=== PATIENT | female | born 1980 | race Caucasian/White ===

== ENCOUNTER → 2016-09-12 | Outpatient (CLI) | payer OTHER ==
[2016-07-18 17:16] VITALS: BP 131/64
--- NOTE | 2016-09-12 14:51 | RAD ---
APPROVED REPORT Patient Location : OUT-PATIENT Indications Lower Extremity Edema : Bilateral RT SFJ 0 SECONDS/ 0.3 CM LT SFJ 0 SECONDS/ 0.4 CM RT LSV 0 SECONDS/ 0.2 CM LT LSV 0 SECONDS. 0.3 CM Critical Notification Critical Value: No <Conclusion> No evidence of reflux in the bilateral greater and lesser saphenous veins. Measurements as noted abov e. No evidence of thrombus on limited imaging.
--- NOTE | 2016-09-12 15:07 | RAD ---
APPROVED REPORT Bilateral Lower Extremity Venous Study for DVT Patient Location: OUT-PATIENT Indications Lower Extremity Edema: Bilateral On the right the common femoral vein, profunda femoral vein, superficial femoral vein and popliteal v eins do not show any evidence of thrombus on grayscale imaging and are fully compressible with normal spectral waveforms on Doppler imaging. The below-knee veins are not well visualized but shows sponta neous flow. Similarly on the left side the common femoral vein, profunda femoral and superficial femo ral veins do not reveal any evidence of thrombus. The popliteal veins are widely patent and there is no evidence of thrombus. Again the below-knee veins on the left side are not well visualized with spo ntaneous flows noted. Critical Notification Critical Value: No <Conclusion> No evidence of DVT in the bilateral lower extremity deep venous system.
== END | disposition home or self-care (01) ==
LOC: US 12:45
PROVIDERS: ATTEND Internal Medicine Cardiovascular Disease
DX: I83.93 Asymptomatic varicose veins of bilateral lower extremities (principal); R60.0 Localized edema
CPT/HCPCS: 93970

== ENCOUNTER → 2016-10-17 | Outpatient (CLI) | payer OTHER ==
[2016-07-18 17:16] VITALS: BP 131/64
--- NOTE | 2016-10-17 14:54 | RAD ---
Indication pain for one month. No history of injury. AP and lateral views of the lumbar spine were obtained as well as a coned view targeted to the lumbosacral junction. Coned view is significantly compromised secondary to motion. Vertebral height and alignment are well maintained. There is very minimal disc space narrowing at L5-S1. An acute finding is not seen. IUD is noted. IMPRESSION: Minimal disc space narrowing L5-S1 in otherwise unremarkable plain films of the lumbar spine
--- NOTE | 2016-10-17 14:59 | RAD ---
Indication back pain. AP and lateral views of the cervical spine were obtained as well as an odontoid view and a swimmer's view. Vertebral height alignment and disc spaces are normal. Significant degenerative changes are not seen. No acute finding is apparent. The prevertebral soft tissues appear normal. IMPRESSION: Normal plain film exam of the cervical spine
== END | disposition home or self-care (01) ==
LOC: DXRADRC 14:14
PROVIDERS: ATTEND Family Medicine
DX: M54.5 Low back pain (principal); M54.6 Pain in thoracic spine
CPT/HCPCS: 72040; 72100

== ENCOUNTER → 2016-10-26 | Outpatient (CLI) | payer OTHER ==
[2016-07-18 17:16] VITALS: BP 131/64
--- NOTE | 2016-10-26 15:44 | RAD ---
Exam performed: X-ray abdomen KUB. Clinical Indication: Left upper quadrant pain for one day Date of Service: 10/26/16 Comparison: KUB from 02/20/09 Findings: Supine radiograph of the abdomen and pelvis reveals no evidence of ileus or obstruction. Definite pathologic calcification or organomegaly is not identified. There is scattered stool throughout the colon. IUD seen in the pelvis The visualized osseous structures appear unremarkable. Impression: 1. No acute abnormality seen. 2. Scattered stool throughout the colon. Correlate clinically for constipation.
== END | disposition home or self-care (01) ==
LOC: DXRADRC 15:27
PROVIDERS: ATTEND General Practice
DX: K59.09 Other constipation (principal); K31.89 Other diseases of stomach and duodenum
CPT/HCPCS: 74000

== ENCOUNTER 2017-01-28 08:13 | Emergency (ER) | payer OTHER ==
[2017-01-28 08:23] VITALS: BP 119/77
--- NOTE | 2017-01-28 08:41 | PHYS DOC ---
Past History Past Medical History: No Pertinent History Past Surgical History: No Surgical History Smoking: Greater than 1 pack/day Alcohol Use: None Drug Use: None Adult General Chief Complaint Chief Complaint: BACK pain HPI HPI Patient is a 36 year old F who presents with back pain. She states that she has had multiple occurrences of back pain over the past several years. She feels that this incident started approximately 2 months ago with no specific injury. She describes the pain as constant dull pain in the right side of her back between her shoulder blades. She feels that this pain is worse with movement or palpation. She is currently taking Flexeril and Ultram ibuprofen and Tylenol for the pain and is under the care of her primary care doctor. She also states that she has had burning with urination over the past 2 weeks. She was treated with Macrobid for 10 days however she feels that her symptoms have not resolved. Review of Systems Review of Systems Constitutional: Denies fever or chills [] Eyes: Denies change in visual acuity, redness, or eye pain [] HENT: Denies nasal congestion or sore throat [] Respiratory: Denies cough or shortness of breath [] Cardiovascular: No additional information not addressed in HPI [] GI: Denies abdominal pain, nausea, vomiting, bloody stools or diarrhea [] : Negative except history of present illness Musculoskeletal: Negative except history of present illness Integument: Denies rash or skin lesions [] Neurologic: Denies headache, focal weakness or sensory changes [] Endocrine: Denies polyuria or polydipsia [] Family History Family History Noncontributory Current Medications Current Medications Reviewed Allergies Allergies Allergies Coded Allergies Type Severity Reaction Last Updated Verified amoxicillin Allergy Unknown 12/15/14 No Physical Exam Physical Exam Constitutional: Well developed, well nourished, no acute distress, non-toxic appearance. [] HENT: Normocephalic, atraumatic, bilateral external ears normal, oropharynx moist, no oral exudates, nose normal. [] Eyes: PERRLA, EOMI, conjunctiva normal, no discharge. [] Neck: Normal range of motion, no tenderness, supple, no stridor. [] Cardiovascular:Heart rate regular rhythm, no murmur [] Lungs & Thorax: Bilateral breath sounds clear to auscultation [] Abdomen: Bowel sounds normal, soft, no tenderness, no masses, no pulsatile masses. [] Skin: Warm, dry, no erythema, no rash. [] Back: On inspection no focal signs of injury. Mild tenderness to palpation on the right mid thoracic paraspinal muscles. Normal range of motion of shoulder and neck and back. No bony tenderness was noted Extremities: No tenderness, no cyanosis, no clubbing, ROM intact, no edema. [] Neurologic: Alert and oriented X 3, normal motor function, normal sensory function, no focal deficits noted. [] Psychologic: Affect normal, judgement normal, mood normal. [] Current Patient Data Vital Signs Vital Signs Date Time Temp Pulse Resp B/P (MAP) Pulse Ox O2 Delivery O2 Flow Rate FiO2 01/28/17 08:23 98.7 81 16 99 Room Air Lab Results Patient refused to give a urine sample Radiology/Procedures Radiology/Procedures No imaging was indicated Course & Med Decision Making Course & Med Decision Making Humphrye symptoms were most consistent with muscle injury and she is currently under the care of her PCP. She does have medications to treat her pain as well as muscle spasm. She also has access to physical therapy. No other emergency medical treatment is available at this time. Her care is best managed by her PCP with respect to chronic conditions. She was advised that if she would like to be treated for her urinary symptoms she would need to provide a urine sample. She declined to give a urine sample Dragon Disclaimer Dragon Disclaimer This chart was dictated in whole or in part using Voice Recognition software in a busy, high-work load, and often noisy Emergency Department environment. It may contain unintended and wholly unrecognized errors or omissions. Departure Departure: Impression: Primary Impression: Back pain Disposition: HOME, SELF-CARE Condition: STABLE Referrals: ASHLEIGH CHEN (PCP) Follow up as soon as possible for further management Patient Instructions: Back Exercises Additional Instructions: Humphrey was seen in the emergency room for back pain. No emergency medical condition was found on history and physical exam. Her pain is chronic and most consistent with muscle pain. She was advised to continue stretching and strengthening as well as using Flexeril she has been previously prescribed as needed for pain. She was advised to follow up with her primary care doctor as soon as possible for further evaluation and management Problem Qualifiers Primary Impression: Back pain Back pain location: thoracic back pain Chronicity: chronic Back pain laterality: right Qualified Codes: M54.6 - Pain in thoracic spine; G89.29 - Other chronic pain SCHUYLER LI MD Jan 28, 2017 08:41
== END 2017-01-28 08:52 | disposition home or self-care (01) ==
LOC: ER 08:13
DX: M54.89 Other dorsalgia (principal); F17.200 Nicotine dependence, unspecified, uncomplicated; Z88.1 Allergy status to other antibiotic agents
CPT/HCPCS: 99281

== ENCOUNTER 2017-09-03 21:44 | Emergency (ER) | payer SELFPAY ==
[~2017-09-03] VITALS: Ht 165.1 cm; Wt 88.5 kg
[2017-09-03 21:50] VITALS: BP 107/61
--- NOTE | 2017-09-03 21:57 | ED.ADGEN ---
Past History Past Medical History: No Pertinent History Past Surgical History: No Surgical History Smoking: Greater than 1 pack/day Alcohol Use: None Drug Use: None Adult General Chief Complaint Chief Complaint " I think I got pink eye . I used my son 's pink eye medicines... " " That was two hours ago... and it is not better..." " This all started this afternoon..." HPI HPI Patient is a 36 year old female who presents with above hx and complaints Lt eye conjunctivitis that started today about 1300 hrs. Pt. denies and specific ill contracts, travel or trauma. No hx of immunosuppression . Pt. does not remember last tetanus.. Pt. Son had pink eye approximately 1 month ago. Pt. denies any significant change in vision. Pt has obvious conjunctivitis and mild lid edema. No limbus injection. No photophobia. MANAN and EOMI. Visual acuity 20/40 left eye 20/50 right eye, 20/40 both per nursing. Review of Systems Review of Systems Constitutional: Denies fever or chills [] Eyes: Denies change in visual acuity, , or eye pain []Complaints of Lt eye conjunctivitis. . HENT: Denies nasal congestion or sore throat [] Respiratory: Denies cough or shortness of breath [] Cardiovascular: No additional information not addressed in HPI [] GI: Denies abdominal pain, nausea, vomiting, bloody stools or diarrhea [] : Denies dysuria or hematuria [] Musculoskeletal: Denies back pain or joint pain [] Integument: Denies rash or skin lesions [] Neurologic: Denies headache, focal weakness or sensory changes [] Endocrine: Denies polyuria or polydipsia [] All other systems were reviewed and found to be within normal limits, except as documented in this note. Family History Family History Son recently had pink eye this past month. Current Medications Current Medications Current Medications Medications (Trade) Dose Ordered Sig/Galo Start Time Stop Time Status Last Admin Dose Admin Diphtheria/ Tetanus/Acell Pertussis (Boostrix) 0.5 ml ONCE ONCE 09/03/17 23:00 09/03/17 23:01 DC Erythromycin (Romycin) 0.25 inch 1X ONCE 09/03/17 22:30 09/03/17 22:31 DC 09/03/17 22:23 0.25 INCH Tetanus/ Diphtheria Toxoids Adsorbed (Diphtheria-Tetanus Toxoids-Ped) 0.5 ml ONCE ONCE 09/03/17 23:30 3 23:31 DC 09/03/17 23:00 0.5 ML Tetanus/ Diphtheria Toxoids Adsorbed (Tenivac Vial) 0.5 ml ONCE ONCE 09/03/17 23:00 09/03/17 23:00 DC See Nursing for home meds. Allergies Allergies Allergies Coded Allergies Type Severity Reaction Last Updated Verified Pertussis Vaccines Allergy Severe 09/03/17 Yes amoxicillin Allergy Intermediate 09/03/17 No Physical Exam Physical Exam Constitutional: no acute distress, non-toxic appearance. [] HENT: Normocephalic, atraumatic, bilateral external ears normal, oropharynx moist, no oral exudates, nose normal. [] Eyes: PERRLA, EOMI, conjunctiva injected , mild discharge. Lt eye. Mild lid edema. [] Neck: Normal range of motion, no tenderness, supple, no stridor. [] Cardiovascular:Heart rate regular rhythm, no murmur [] Lungs & Thorax: Bilateral breath sounds equal at apex with a few scattered wheezes on auscultation [] Abdomen: Bowel sounds normal, soft, no tenderness, no masses, no pulsatile masses. [] Skin: Warm, dry, no erythema, no rash. [] Back: No tenderness, no CVA tenderness. [] Extremities: No tenderness, no cyanosis, no clubbing, ROM intact, no edema. [] Neurologic: Alert and oriented X 3, normal motor function, normal sensory function, no focal deficits noted. [] Psychologic: Affect normal, judgement normal, mood normal. [] Current Patient Data Vital Signs Vital Signs Date Time Temp Pulse Resp B/P (MAP) Pulse Ox O2 Delivery O2 Flow Rate FiO2 09/03/17 21:50 98.8 82 20 98 Room Air EKG EKG [] Radiology/Procedures Radiology/Procedures [] Course & Med Decision Making Course & Med Decision Making Pertinent Labs and Imaging studies reviewed. (See chart for details). Take tylenol and ibuprofen for discomfort. Frequent hand washing. Use very small amount of erythromycin to both eyes 4 x day. Follow up with primary and ophthalmology. . Return if any concerns. [] Final Impression Final Impression 1. Conjunctivitis[] Lt. eye Problems: Dragon Disclaimer Dragon Disclaimer This electronic medical record was generated, in whole or in part, using a voice recognition dictation system. PEDRO MCCLENDON MD Sep 03, 2017 21:57
[2017-09-03] MEDS ORDERED: ERYTHROMYCIN 0.5% OPHTH OINTMENT 1GM TUBE. OU ONE (22:30)
[2017-09-03] MEDS ORDERED: DIPHTH,PERTUSS(ACELL),TET TOX 0.5 ML DISP.SYRIN. VAX IM ONE ×2 (22:46→23:00)
[2017-09-03] MEDS ORDERED: TETANUS AND DIPHTHERIA TOX/PF 0.5 ML VIAL. VAX IM ONE ×2 (22:53→23:00)
[2017-09-03] MEDS: TETANUS,DIPHTHERIA TOXD PED PF 0.5 ML VIAL. VAX IM ONE ×2 (23:00→23:30)
[2017-09-04] MEDS ORDERED: TETANUS AND DIPHTHERIA TOX/PF 0.5 ML VIAL. VAX IM ONE (07:30)
== END 2017-09-03 23:05 | disposition home or self-care (01) ==
LOC: ER 21:44
DX: H10.9 Unspecified conjunctivitis (principal); H02.846 Edema of left eye, unspecified eyelid; Z88.1 Allergy status to other antibiotic agents; Z88.7 Allergy status to serum and vaccine; F17.210 Nicotine dependence, cigarettes, uncomplicated
CPT/HCPCS: 90471; 90714; 99283-25

== ENCOUNTER 2021-07-18 15:59 | Emergency (ER) | payer MEDICAID ==
[~2021-07-18] VITALS: Ht 165.1 cm; Wt 79.6 kg
[2021-07-18] MEDS ORDERED: ORPHENADRINE CITRATE 60 MG/2 ML VIAL. IM ONE (16:30)
[2021-07-18] MEDS ORDERED: KETOROLAC 60 MG/2 ML VIAL. IM ONE (16:30)
[2021-07-18] MEDS ORDERED: METH4TAB2 PO (16:54)
--- NOTE | 2021-07-18 16:56 | PHYS DOC ---
Past History Past Medical History: Depression, Other (IVONNE ARITA APRN) Past Surgical History: , Other (IVONNE ARITA APRN) Smoking: Greater than 1 pack/day Alcohol Use: None Drug Use: None (IVONNE ARITA APRN) General Adult EDM: Chief Complaint: BACK PAIN - NO INJURY HPI: HPI: Patient is a 40-year-old female who presents to the emergency department for right lower back pain that radiates down into her buttock that started on Monday. Patient rates pain 8 out of 10. She states it is worse with movement. She has been taking Flexeril at home. She denies any urinary symptoms wounds, injury, loss of bowel or bladder, saddle anesthesias, inability to bear weight or ambulate. (IVONNE ARITA APRN) Review of Systems: Review of Systems: GI: See HPI : See HPI Musculoskeletal: See HPI Integument: Denies wounds Neurologic: See HPI (IVONNE ARITA APRN) Current Medications: Current Meds: Current Medications Medications (Trade) Dose Ordered Sig/Galo Start Time Stop Time Status Last Admin Dose Admin Ketorolac Tromethamine (Toradol Im) 60 mg 1X ONCE 07/18/21 16:30 07/18/21 16:32 DC 07/18/21 16:43 60 MG Orphenadrine Citrate (Norflex) 60 mg 1X ONCE 07/18/21 16:30 07/18/21 16:32 DC 07/18/21 16:44 60 MG (IVONNE ARITA APRN) Allergies: Allergies: Allergies Coded Allergies Type Severity Reaction Last Updated Verified Pertussis Vaccines Allergy Severe 09/03/17 Yes amoxicillin Allergy Intermediate 09/03/17 No (IVONNE ARITA APRN) Physical Exam: PE: Constitutional: Well developed, well nourished, no acute distress, non-toxic appearance. [] HENT: Normocephalic, atraumatic, bilateral external ears normal, oropharynx moist, no oral exudates, nose normal. [] Eyes: PERRL, EOMI, conjunctiva normal, no discharge. [] Neck: Normal range of motion, no spinal tenderness, supple, no stridor. [] Cardiovascular:Heart rate regular rhythm, no murmur [] Lungs & Thorax: Bilateral breath sounds clear to auscultation [] Abdomen: Bowel sounds normal, soft, no tenderness, no masses, no pulsatile masses. [] Skin: Warm, dry, no erythema, no rash. [] Back: No bony spinal tenderness, no CVA tenderness, right paraspinal lumbar tenderness with palpation. [] Extremities: No tenderness, no cyanosis, no clubbing, ROM intact, no edema. [] Right positive straight leg raise Neurologic: Alert and oriented X 3, normal motor function, normal sensory function, no focal deficits noted. [] Psychologic: Affect normal, judgement normal, mood normal. [] (IVONNE ARITA APRN) Current Patient Data: Labs: Laboratory Tests Test 07/18/21 16:35 07/18/21 16:52 Urine Collection Type Clean catch Urine Color Yellow Urine Clarity Clear Urine pH 6.5 Urine Specific [place] 1.025 Urine Protein Neg Urine Glucose (UA) Neg mg/dL Urine Ketones (Stick) Neg mg/dL Urine Blood Trace Urine Nitrite Neg Urine Bilirubin Neg Urine Urobilinogen Dipstick 0.2 mg/dL Urine Leukocyte Esterase Neg Urine RBC Occ /HPF Urine WBC 0 /HPF Urine Bacteria 0 /HPF Bedside Urine HCG, Qualitative hcg negative Current Medications Medications (Trade) Dose Ordered Sig/Galo Route PRN Reason Start Time Stop Time Status Last Admin Dose Admin Ketorolac Tromethamine (Toradol Im) 60 mg 1X ONCE IM 07/18/21 16:30 07/18/21 16:32 DC 07/18/21 16:43 Orphenadrine Citrate (Norflex) 60 mg 1X ONCE IM 07/18/21 16:30 07/18/21 16:32 DC 07/18/21 16:44 Vital Signs: Vital Signs Date Time Temp Pulse Resp B/P (MAP) Pulse Ox O2 Delivery O2 Flow Rate FiO2 07/18/21 16:00 98.1 119 22 119/77 (91) 98 Room Air (IVONNE ARITA APRN) EKG: EKG: [] (IVONNE ARITA APRN) Radiology/Procedures: Radiology/Procedures: []PROCEDURE: CT LUMBAR SPINE WO CONTRAST EXAM: Lumbar spine CT without contrast. HISTORY: Pain. TECHNIQUE: Computed tomographic images of the lumbar spine were obtained without contrast. Multiplanar reformatting was performed. *One or more of the following individualized dose reduction techniques were utilized for this examination: 1. Automated exposure control. 2. Adjustment of the mA and/or kV according to patient size. 3. Use of iterative reconstruction technique. COMPARISON: None. FINDINGS: There is mild scoliosis. There is degenerative endplate remodeling with disc space narrowing predominantly at L5-S1. There is no fracture or suspicious osseous lesion. There is a 1.6 cm nodule or nodular thickening involving the left adrenal gland. There is a gallstone within the gallbladder neck. There is no appendicitis. There is an IUD within the uterine cavity. The sacroiliac joints are intact. At L1-L2 and L2-L3, there is no stenosis. At L3-L4, there is a posterior central disc protrusion superimposed on a disc bulge and endplate remodeling. There is mild central canal stenosis. At L4-L5, there is a right paracentral to lateral recess disc protrusion superimposed on a disc bulge and endplate remodeling. There is mild right foraminal stenosis. There is mild central canal stenosis and narrowing of the right lateral recess. At L5-S1, there is a left paracentral disc protrusion superimposed on a disc bulge and endplate remodeling. There is mild bilateral foraminal stenosis. IMPRESSION: 1. Degenerative change involving the lumbar spine, described in detail above. This is associated with mild central canal stenosis at L3-L4, mild right foraminal and central canal stenosis and narrowing of the right lateral recess at L4-L5, is an mild bilateral foraminal stenosis at L5-S1. 2. No acute osseous finding. 3. Gallstone within the gallbladder neck. Electronically signed by: Faith Suero MD (07/18/2021 5:23 PM) [facility] DICTATED AND SIGNED BY: FAITH SUERO MD DATE: 07/18/211717 CC: IVONNE ARITA APRN; CORNELIA MAYES MD ~MTH0 0 (IVONNE ARITA APRN) Heart Score: C/O Chest Pain: N/A Risk Factors: Risk Factors: DM, Current or recent (<one month) smoker, HTN, HLP, family history of CAD, obesity. Risk Scores: Score 0 - 3: 2.5% MACE over next 6 weeks - Discharge Home Score 4 - 6: 20.3% MACE over next 6 weeks - Admit for Clinical Observation Score 7 - 10: 72.7% MACE over next 6 weeks - Early Invasive Strategies (IVONNE ARITA APRN) Course & Med Decision Making: Course & Med Decision Making Pertinent Labs and Imaging studies reviewed. (See chart for details) [] Patient presents to the emergency department for right lower back pain that radiates into her buttock. He had a positive right straight leg raise. CT imaging performed of the lumbar spine showed no acute findings but did show degenerative changes. Patient treated with anti-inflammatory and a muscle relaxer injection. Patient reports he is muscle relaxer medication at home. She is advised to take anti-inflammatory medication as she is likely experiencing sciatica. She had no cauda equina signs. Patient will be discharged home with a steroid Dosepak. I discussed with patient all findings and diagnostic testing as well as the need to follow-up with PCP for further evaluation and treatment or return to the ER if any new or worsening symptoms. Strict return precautions were also discussed at length. Patient voiced understanding and agreement with the plan. Patient is hemodynamically stable at the time of disposition. (IVONNE ARITA APRN) Dragon Disclaimer: Dragon Disclaimer: This electronic medical record was generated, in whole or in part, using a voice recognition dictation system. (IVONNE ARITA APRN) Attending Co-Sign The patient was seen and interviewed as well as examined at the bedside. The chart was reviewed. The case was discussed. Agree with the plan of care. (PRAKASH CASTANEDA DO) Departure Departure: Impression: Primary Impression: Sciatica Qualified Codes: M54.31 - Sciatica, right side Disposition: HOME / SELF CARE / HOMELESS Condition: GOOD Referrals: CORNELIA MAYES MD (PCP) Patient Instructions: Sciatica Additional Instructions: You were seen in the emergency department for low back pain that radiates into your buttock. CT imaging was performed that showed no acute findings but degenerative changes. You are likely experiencing sciatica. This is helped with anti-inflammatory medications and muscle relaxers. Continue taking the muscle relaxers that you have at home and take ibuprofen or naproxen. You are also being discharged home with a steroid Dosepak that may help with inflammation. Follow-up with your primary care provider on Monday regarding your ER visit. Return to the emergency department if you develop worsening of your pain, inability to bear weight or walk, loss of bowel or bladder, urinary symptoms, numbness or tingling in your groin. Scripts Methylprednisolone (MEDROL) 4 Mg Tab.ds.pk 1 PKG PO UD for inflammation, #1 PKG 0 Refills Prov: IVONNE ARITA APRN 07/18/21 IVONNE ARITA APRN Jul 18, 2021 16:56 PRAKASH CASTANEDA DO Jul 19, 2021 11:27
[2021-07-18 17:14] LABS: BILIRUBIN,URINE NEG (NEG); CLARITY,URINE CLEAR; COLOR,URINE YELLOW; GLUCOSE,URINE NEG (NEG)
[2021-07-18 17:15] LABS: BACTERIA,URINE 0 /HPF (0-FEW); NITRITE,URINE NEG (NEG); RBC,URINE OCC /HPF (0-2); UROBILINOGEN,URINE 0.2 mg/dL (0.2 mg/dL); WBC,URINE 0 /HPF (0-4)
--- NOTE | 2021-07-18 17:25 | RAD ---
EXAM: Lumbar spine CT without contrast. HISTORY: Pain. TECHNIQUE: Computed tomographic images of the lumbar spine were obtained without contrast. Multiplana r reformatting was performed. *One or more of the following individualized dose reduction techniques were utilized for this examina tion: 1. Automated exposure control. 2. Adjustment of the mA and/or kV according to patient size. 3. Use of iterative reconstruction technique. COMPARISON: None. FINDINGS: There is mild scoliosis. There is degenerative endplate remodeling with disc space narrowin g predominantly at L5-S1. There is no fracture or suspicious osseous lesion. There is a 1.6 cm nodule or nodular thickening involving the left adrenal gland. There is a gallstone within the gallbladder neck. There is no appendicitis. There is an IUD within the uterine cavity. The sacroiliac joints are intact. At L1-L2 and L2-L3, there is no stenosis. At L3-L4, there is a posterior central disc protrusion superimposed on a disc bulge and endplate herb deling. There is mild central canal stenosis. At L4-L5, there is a right paracentral to lateral recess disc protrusion superimposed on a disc bulge and endplate remodeling. There is mild right foraminal stenosis. There is mild central canal stenosi s and narrowing of the right lateral recess. At L5-S1, there is a left paracentral disc protrusion superimposed on a disc bulge and endplate remod eling. There is mild bilateral foraminal stenosis. IMPRESSION: 1. Degenerative change involving the lumbar spine, described in detail above. This is associated with mild central canal stenosis at L3-L4, mild right foraminal and central canal stenosis and narrowing of the right lateral recess at L4-L5, is an mild bilateral foraminal stenosis at L5-S1. 2. No acute osseous finding. 3. Gallstone within the gallbladder neck. Electronically signed by: Faith Hoang MD (07/18/2021 5:23 PM) [facility]
[2021-07-18 17:40] VITALS: BP 145/86
== END 2021-07-18 17:43 | disposition home or self-care (01) ==
LOC: ER 15:59
DX: M54.41 Lumbago with sciatica, right side (principal); Z87.891 Personal history of nicotine dependence; Z98.890 Other specified postprocedural states; Z88.1 Allergy status to other antibiotic agents; Z88.7 Allergy status to serum and vaccine
CPT/HCPCS: 72131; 81001; 81025; 96372; 99284; J1885; J2360

== ENCOUNTER 2021-07-30 17:17 | Emergency (ER) | payer MEDICAID ==
[~2021-07-30] VITALS: Ht 165.1 cm; Wt 86.8 kg
[~2021-07-30 17:17] MED LIST: METH4TAB2 PO
[2021-07-30] MEDS ORDERED: KETOROLAC 60 MG/2 ML VIAL. IM ONE (18:15)
[2021-07-30] MEDS ORDERED: ORPHENADRINE CITRATE 60 MG/2 ML VIAL. IM ONE (18:15)
--- NOTE | 2021-07-30 18:23 | PHYS DOC ---
Past History Past Medical History: Depression, Other (OK RIVAS APRN) Past Surgical History: , Other Additional Past Surgical Histo: lep procedure (OK RIVAS APRN) Smoking: Greater than 1 pack/day Alcohol Use: None Drug Use: None (OK RIVAS APRN) General Adult EDM: Chief Complaint: LOWER EXT PAIN HPI: HPI: Patient is a 40-year-old female presents with right leg and lower back pain for 2 weeks. Patient was seen in the emergency room for same claim complaints and sent home with a Medrol Dosepak and treated in the ER. Patient states that her pain improved but has now returned. Denies saddle anesthesia, urinary retention or loss of bowel. Pain is worse with ambulation. Rating pain 8/10. Patient has history of anxiety and depression. (OK RIVAS APRN) Review of Systems: Review of Systems: ROS At least 10 ROS systems have been reviewed and are negative except as documented in the HPI. General: Negative except as outlined in HPI above. Skin: Negative except as outlined in HPI above. HEENT: Negative except as outlined in HPI above. Neck: Negative except as outlined in HPI above. Respiratory: Negative except as outlined in HPI above.. Cardiovascular: Negative except as outlined in HPI above. Abdomen: Negative except as outlined in HPI above. : Negative except as outlined in HPI above. Back/MSK: Negative except as outlined in HPI above. Neuro: Negative except as outlined in HPI above. Psych: Negative except as outlined in HPI above. (OK RIVAS APRN) Allergies: Allergies: Allergies Coded Allergies Type Severity Reaction Last Updated Verified Pertussis Vaccines Allergy Severe 09/03/17 Yes amoxicillin Allergy Intermediate 09/03/17 No (OK RIVAS APRN) Physical Exam: PE: Constitutional: Well developed, well nourished, no acute distress, non-toxic appearance. [] HENT: bilateral external ears normal, oropharynx moist, no oral exudates, nose normal. [] Eyes: PERRLA, EOMI, conjunctiva normal, no discharge. [] Neck: Normal range of motion, no tenderness, supple, no stridor. [] Cardiovascular:Heart rate regular rhythm, no murmur [] Lungs & Thorax: Bilateral breath sounds clear to auscultation [] Abdomen: Bowel sounds normal, soft, no tenderness, no masses, no pulsatile masses. [] Skin: Warm, dry, no erythema, no rash. [] Back: Lower back tendernessradiates down right leg, no CVA tenderness. [] Extremities: Right leg tenderness, no cyanosis, no clubbing, ROM intact, no man a. [] Neurologic: Alert and oriented X 3, normal motor function, normal sensory function, no focal deficits noted. [] Psychologic: Affect normal, judgement normal, mood normal. [] (OK RIVAS APRN) Current Patient Data: Vital Signs: Vital Signs Date Time Temp Pulse Resp B/P (MAP) Pulse Ox O2 Delivery O2 Flow Rate FiO2 07/30/21 17:27 98.3 83 20 136/82 (100) 99 Room Air (OK RIVAS APRN) EKG: EKG: [] (OK RIVAS APRN) Radiology/Procedures: Radiology/Procedures: [] (OK RIVAS APRN) Heart Score: C/O Chest Pain: No Risk Factors: Risk Factors: DM, Current or recent (<one month) smoker, HTN, HLP, family history of CAD, obesity. Risk Scores: Score 0 - 3: 2.5% MACE over next 6 weeks - Discharge Home Score 4 - 6: 20.3% MACE over next 6 weeks - Admit for Clinical Observation Score 7 - 10: 72.7% MACE over next 6 weeks - Early Invasive Strategies (OK RIVAS APRN) Course & Med Decision Making: Course & Med Decision Making Pertinent Labs and Imaging studies reviewed. (See chart for details) [] 10-year-old female presents with right leg and lower back pain for 2 weeks. Patient was seen here 2 weeks ago for the same symptoms and and treated with Medrol Dosepak and muscle relaxers. Patient states that symptoms resolved but have returned. Denies injury. Patient's been seen by her PCP, Dr. Mayes, who started her on physical therapy. Patient states she has been taking ibuprofen at home with no relief. She had CT lumbar previous visit, which was unremarkable. Patient's pain is most likely from sciatica. No trauma. Patient's pain treated with IM Toradol,, IM muscle relaxer. Discussed at home remedies to try. Patient can also take ibuprofen for breakthrough pain. Patient needs to call her PCP on Monday make a follow-up appointment for further imaging. Sent home with hydrocodone. (OK RIVAS APRN) Course & Med Decision Making Did not see or evaluate patient. Did not discuss patient with SOCIAL WORK MANAGER. Agree with SOCIAL WORK MANAGER's work-up and disposition per note. (NIKKI CLAIRE MD) Dragon Disclaimer: Dragon Disclaimer: This electronic medical record was generated, in whole or in part, using a voice recognition dictation system. (OK RIVAS APRN) Departure Departure: Impression: Primary Impression: Sciatica Qualified Codes: M54.31 - Sciatica, right side Disposition: HOME / SELF CARE / HOMELESS Condition: STABLE Referrals: CORNELIA MAYES MD (PCP) Patient Instructions: Sciatica, [id number] Additional Instructions: You were seen emergency room for lower back pain that radiated down your leg. You were given IM Toradol and muscle relaxer. Sending you home with pain medication. You can also take ibuprofen for breakthrough pain. You may take 600 mg every 8 hours. I would start taking that tomorrow considering you have already had unknown amount of ibuprofen today. You can also take your Flexeril at home. Flexeril makes you very tired so make sure you are not driving when you take it. You can use a frozen water bottle to roll on the back of your leg and your butt to see if that helps with pain. Use ice to the area. Call Dr. Mayes on Monday make a follow-up appointment so that you can get further imaging scheduled. Return emergency room with worsening symptoms or concerns such as unable to ambulate, unable to pee, loss of bowel. EMERGENCY DEPARTMENT GENERAL DISCHARGE INSTRUCTIONS Thank you for coming to [facility] (ED) today and trusting us with you care. We trust that you had a positivie experience in our Emergency Department. If you wish to speak to the department management, you may call the director at [phone]. YOUR FOLLOW UP INSTRUCTIONS ARE FOLLOWS: 1. Do you have a private Doctor? If you do not have a private doctor, please ask for a resource list of physicians or clinics that may be able to assist you with follow up care. 2. The Emergency Physician has interpreted your x-rays. The X-Ray specialist will also review them. If there is a change in the findings, you will be notified in 48 hours when at all possible. 3. A lab test or culture has been done, your results will be reviewed and you will be notified if you need a change in treatment. ADDITIONAL INSTRUCTIONS AND INFORMATION: 1. Your care today has been supervised by a physician who is specially trained in emergency care. Many problems require more than one evaluation for a complete diagnosis and treatment. We recommend that you schedule your follow up appointment as recommended to ensure complete treatment of you illness or injury. If you are unable to obtain follow up care and continue to have a problem, or if your condition worsens, we recommend that you return to the ED. 2. We are not able to safely determine your condition over the phone nor are we able to give sound medical advice over the phone. For these safety reasons, if you call for medical advice we will ask you to come to the ED for further evaluation. 3. If you have any questions regarding these discharge instructions please call the ED at [phone]. SAFETY INFORMATION: In the interest of safety, wellness, and injury prevention; we encourage you to wear your sealbelt, if you smoke; quite smoking, and we encourage family to use a protective helmet for bicycling and other sporting events that present an increased risk for head injury. IF YOUR SYMPTOMS WORSEN OR NEW SYMPTOMS DEVELOP, OR YOU HAVE CONCERNS ABOUT YOUR CONDITION; OR IF YOUR CONDITION WORSENS WHILE YOU ARE WAITING FOR YOUR FOLLOW UP APPOINTMENT; EITHER CONTACT YOUR PRIMARY CARE DOCTOR, THE PHYSICIAN WHOSE NAME AND NUMBER YOU WERE GIVEN, OR RETURN TO THE ED IMMEDIATELY. OK RIVAS APRN Jul 30, 2021 18:23 NIKKI CLAIRE MD Aug 01, 2021 23:29
[2021-07-30 19:32] VITALS: BP 127/48
[2021-07-30] MEDS ORDERED: ACETAMINOPHEN/CODEINE 300/30MG 4TABLET STARTPACK. PO ONE (20:00)
[2021-07-31] MEDS ORDERED: HYDR-2155 PO (13:48)
== END 2021-07-30 20:18 | disposition home or self-care (01) ==
LOC: ER 17:17
DX: M54.41 Lumbago with sciatica, right side (principal); F32.9 Major depressive disorder, single episode, unspecified; F17.200 Nicotine dependence, unspecified, uncomplicated; Z98.890 Other specified postprocedural states; Z88.7 Allergy status to serum and vaccine; Z88.1 Allergy status to other antibiotic agents
CPT/HCPCS: 96372; 99284; J1885; J2360

== ENCOUNTER 2021-07-31 12:51 | Emergency (ER) | payer MEDICAID ==
[~2021-07-31] VITALS: Ht 165.1 cm; Wt 86.8 kg
[2021-07-31 13:04] VITALS: BP 123/91
[2021-07-31] MEDS ORDERED: HYDR-2155 PO (13:48)
--- NOTE | 2021-07-31 13:49 | PHYS DOC ---
Past History Past Medical History: Depression, Other (CHANCE MENDOZA APRN) Past Surgical History: , Other Additional Past Surgical Histo: leep procedure (CHANCE MENDOZA APRN) Smoking: Greater than 1 pack/day Alcohol Use: None Drug Use: None (CHANCE MENDOZA APRN) General Adult EDM: Chief Complaint: PAIN CONTROL HPI: HPI: Patient is a 40-year-old female that presents today with right-sided back pain. Patient has been seen on July 18 here in the emergency department, and July 30 here in the emergency department both for the same condition that she is currently here for today, she is also seen her primary care physician and has been seen by physical therapy for this low back pain on the that is located on the right side. She presents today because it is not any better and she is wanting it to get better today. 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 Patient states she has gotten a prescription for Flexeril, Lidoderm patches, Ultram, and physical therapy for further management of this low back pain pump, she states that she was given exercises by the physical therapist to do over the weekend to help with stretching she states that she has been doing that but she still continues to have right hip pain that radiates to her right ankle. Patie nt denies any loss of bowel or bladder control, she states she is able to urinate and defecate without any issues. Patient is very tearful she is very frustrated, she states that she thinks people are looking at her like a drug seeker and that she is only trying to get better. Patient was informed that back pain on a acute on chronic concern needs to be managed on an outpatient p atient by her primary care physician with whom she has seen and has been treated with. Patient was informed that she needs to take the prescribed treatments as directed to help with all of her pain, and did inform her that things do not work overnight in some time it takes extended periods of time for that to help. (CHANCE MENDOZA APRN) Review of Systems: Review of Systems: Constitutional: Denies fever or chills Eyes: Denies change in visual acuity HENT: Denies nasal congestion or sore throat Respiratory: Denies cough or shortness of breath Cardiovascular: Denies chest pain or edema GI: Denies abdominal pain, nausea, vomiting, bloody stools or diarrhea : Denies dysuria Musculoskeletal: Right hip right back pain Integument: Denies rash Neurologic: Denies headache, focal weakness or sensory changes Endocrine: Denies polyuria or polydipsia Lymphatic: Denies swollen glands Psychiatric: Denies depression or anxiety (CHANCE MENDOZA APRN) Allergies: Allergies: Allergies Coded Allergies Type Severity Reaction Last Updated Verified Pertussis Vaccines Allergy Severe 09/03/17 Yes amoxicillin Allergy Intermediate 09/03/17 No (CHANCE MENDOZA APRN) Physical Exam: PE: Constitutional: Well developed, well nourished, mild distress, non-toxic appearance. [] HENT: Normocephalic, atraumatic, bilateral external ears normal, oropharynx moist, no oral exudates, nose normal. [] Eyes: PERRLA, EOMI, conjunctiva normal, no discharge. [] Neck: Normal range of motion, no tenderness, supple, no stridor. [] Cardiovascular:Heart rate regular rhythm, no murmur [] Lungs & Thorax: Bilateral breath sounds clear to auscultation [] Abdomen: Bowel sounds normal, soft, no tenderness, no masses, no pulsatile masses. [] Skin: Warm, dry, no erythema, no rash. [] Back: Tenderness noted over the piriformis muscle, patient does have radiation to the right leg with a positive straight leg raise. Sensory is intact distal to the pain, pedal pulses are 2+, cap refills less than 2 seconds. No lacerations, abrasions, contusions, or ecchymosis noted over the right hip area. [] Extremities: No tenderness, no cyanosis, no clubbing, ROM intact, no edema. [] Neurologic: Alert and oriented X 3, normal motor function, normal sensory function, no focal deficits noted. [] Psychologic: Affect depressed, judgement normal, mood anxious. [] (CHANCE MENDOZA APRN) Current Patient Data: Vital Signs: Vital Signs Date Time Temp Pulse Resp B/P (MAP) Pulse Ox O2 Delivery O2 Flow Rate FiO2 2/12/22 13:04 93 18 123/91 (102) 100 (CHANCE MENDOZA APRN) EKG: EKG: [] (CHANCE MENDOZA APRN) Radiology/Procedures: Radiology/Procedures: [] (CHANCE MENDOZA APRN) Heart Score: C/O Chest Pain: N/A Risk Factors: Risk Factors: DM, Current or recent (<one month) smoker, HTN, HLP, family history of CAD, obesity. Risk Scores: Score 0 - 3: 2.5% MACE over next 6 weeks - Discharge Home Score 4 - 6: 20.3% MACE over next 6 weeks - Admit for Clinical Observation Score 7 - 10: 72.7% MACE over next 6 weeks - Early Invasive Strategies (CHANCE MENDOZA APRN) Course & Med Decision Making: Course & Med Decision Making Pertinent Labs and Imaging studies reviewed. (See chart for details) Patient was evaluated, she is tearful and very frustrated with the whole healing process, but patient was informed that she needs to take the medications and the treatments that have been prescribed by her physical therapist and her primary care physician as directed. Patient also is to call on Monday to follow-up with her primary care physician to let him know that the treatments that were prescribed last week or not yet working. Patient will be given hydrocodone's for the weekend so that she may follow-up with prior primary care physician. (CHANCE MENDOZA APRN) Course & Med Decision Making I was the Attending physician on the above date of service of this patient. This patient was evaluated, examined, treated, and dispositioned from the emergency department by the mid-level practitioner. I reviewed case with midlevel practitioner and agreed to plan of care as stated for patient with no red flag signs or symptoms of back pain Electronically signed, Corine Ware DO (CORINE WARE DO) David Disclaimer: David Disclaimer: This electronic medical record was generated, in whole or in part, using a voice recognition dictation system. (CHANCE MENDOZA APRN) Departure Departure: Impression: Primary Impression: Sciatica Qualified Codes: M54.31 - Sciatica, right side Disposition: HOME / SELF CARE / HOMELESS Condition: STABLE Referrals: CORNELIA FARIAS MD (PCP) Patient Instructions: Sciatica Additional Instructions: Hydrocodone take 1 tablet every 6 hours as needed for severe pain. Use with caution may cause drowsiness, also use with caution may cause constipation Flexeril take as labeled directed by your primary care physician Lidoderm patches take as directed by your primary care physician placed them over your right hip area. Follow the exercises that were given to you by physical therapy on Call Dr. Farias's office on Monday for further management of your lower back pain. Scripts Hydrocodone Bit/Acetaminophen (HYDROCODONE-APAP 5-325 ) 1 Each Tablet 1 TAB PO PRN Q6HRS PRN for PAIN, #14 TAB 0 Refills Prov: CHANCE MENDOZA APRN 07/31/21 CHANCE MENDOZA APRN Jul 31, 2021 13:49 CORINE WARE DO Aug 05, 2021 06:40
== END 2021-07-31 13:57 | disposition home or self-care (01) ==
LOC: ER 12:51
DX: M54.41 Lumbago with sciatica, right side (principal); F17.200 Nicotine dependence, unspecified, uncomplicated; Z88.7 Allergy status to serum and vaccine; Z88.1 Allergy status to other antibiotic agents
CPT/HCPCS: 99283